=== PATIENT | female | born 1975 | race Caucasian/White ===

== ENCOUNTER 2018-12-17 14:03 | Emergency (ER) | payer OTHER ==
[~2018-12-17] VITALS: Ht 167.6 cm; Wt 97.2 kg
[2018-12-17 14:22] VITALS: BP 181/106
--- NOTE | 2018-12-17 14:32 | NUR ---
TO ROOM FROM [facility]. NAD.
--- NOTE | 2018-12-17 14:55 | NUR ---
Pt sent from for blisters to eye. no changes to vision. NAD at this time.
[2018-12-17] MEDS ORDERED: FLUORESCEIN OPHTHALMIC 1 MG STRIP ONE (15:09)
[2018-12-17] MEDS ORDERED: PROPARACAINE OPHTH 0.5%, 15ML ONE (15:10)
== END 2018-12-17 15:39 | disposition home or self-care (01) ==
LOC: ED 14:37
DX: B02.9 Zoster without complications (principal)
CPT/HCPCS: 99283